=== PATIENT | male | born 1975 | race Caucasian/White ===

== ENCOUNTER 2021-07-04 11:28 | Emergency (ER) | payer SELFPAY ==
[2021-07-04] MEDS ORDERED: Tetracaine HCl/PF 0.5% 4 ML Bottle EYEBOTH ONE (13:47)
== END 2021-07-04 14:40 | disposition home or self-care (01) ==
LOC: MW.ED 11:28
DX: M79.5 Residual foreign body in soft tissue (principal); I10 Essential (primary) hypertension; E11.9 Type 2 diabetes mellitus without complications; Z79.84 Long term (current) use of oral hypoglycemic drugs
CPT/HCPCS: 99283

== ENCOUNTER 2021-10-12 15:51 | Emergency (ER) | payer OTHER ==
[2021-10-12] MEDS ORDERED: Sodium Chloride 0.9% 1,000 ML IV ONE ×3 (16:15→17:40)
[2021-10-12 17:36] LABS: BLOOD UREA NITROGEN,BUN 5 mg/dL (7.0-18.0); CHLORIDE,CL 94 mmol/L (98-107); POTASSIUM,K 3.7 mmol/L (3.5-5.1); SODIUM,NA 130 mmol/L (136-148)
[2021-10-12 17:39] LABS: GLUCOSE RANDOM 719 mg/dL (74-106)
[2021-10-12] MEDS ORDERED: Insulin Regular, Human 100 Units/ML 10 ML Vial SUBCUT ONE (17:41)
[2021-10-12] MEDS ORDERED: Glucagon,Human Recombinant 1 MG Vial IM PRN (17:41)
[2021-10-12] MEDS ORDERED: 50% Dextrose in Water 50 ML Syringe IVPUSH PRN (17:41)
[2021-10-12] MEDS ORDERED: Insulin Regular in 0.9 % NACL 100 ML IV SCH (18:00)
[2021-10-12 18:11] LABS: HEMOGLOBIN A1C 10.2 %
== END 2021-10-12 19:56 | disposition left against medical advice (07) ==
LOC: MW.ED 15:51
DX: E11.10 Type 2 diabetes mellitus with ketoacidosis without coma (principal); I10 Essential (primary) hypertension; Z91.19 Patient's noncompliance with other medical treatment and regimen; Z79.84 Long term (current) use of oral hypoglycemic drugs; Z20.822 Contact with and (suspected) exposure to COVID-19
CPT/HCPCS: 36415; 80053; 80305; 80307; 81001; 82009; 82803; 82947; 83036; 83605; 83735; 85025; 87635; 93005; 99283; J7030; J1815-GY; U0002